=== PATIENT | male | born 1940 | race Caucasian/White ===

== ENCOUNTER 2019-06-15 17:33 | Observation (INO) | payer MEDICARE, OTHER ==
[~2019-06-15] VITALS: Ht 175.3 cm; Wt 100.4 kg
[~2019-06-15 17:33] MED LIST: ALLEGRA30 MG OR; ASA LO-DOSE81 MG OR; HYDROXYZ HCL25 MG OR; LIPITOR20 MG OR; MULTIVITAMI1 OR; VITAMIN C500 M1 OR
[2019-06-15] MEDS ORDERED: MINOCYCLINE50 MG PO (17:51)
[2019-06-15] MEDS ORDERED: LEVOTHYROXIN100 MCG PO (17:51)
[2019-06-15] MEDS ORDERED: DOXYCYCL HYC100 MG PO (17:52)
[2019-06-15] MEDS ORDERED: GABAPENTIN100 MG PO (17:53)
[2019-06-15] MEDS ORDERED: SINEMET CR PO (17:53)
[2019-06-15] MEDS ORDERED: LOSARTAN POTASS25 MG PO (17:53)
[2019-06-15 18:35] LABS: HEMATOCRIT 45.7 % (39.0-50.0); HEMOGLOBIN 15.4 g/dl (14.0-18.0); IMMATURE GRANULOCYTES 0.4 % (0.0-5.0); MEAN CELL VOLUME 92.7 fL CALC (80.0-100.0); MEAN CORPUSCULAR HGB 31.2 pG CALC (26.0-32.0); MEAN CORPUSCULAR HGB CONC 33.7 g/L CALC (32.0-36.0); NEUT# 5.36 thou/uL (1.82-7.42); RED BLOOD COUNT 4.93 mill/uL (4.70-6.10); RED CELL DISTRI WIDTH 13.1 % (11.5-15.5)
[2019-06-15 18:47] LABS: ALBUMIN 4.8 g/dL (3.2-5.0); ALKALINE PHOSPHATASE 69 u/l (38-126); ANION GAP 17 (6-22 (CALC)); BILIRUBIN, TOTAL 0.7 mg/dL (0.0-1.4); BUN 27 mg/dL (8-23); BUN/CREATININE RATIO 19 (12-20 (CALC)); CARBON DIOXIDE 26 mmol/l (22-30); CHLORIDE 105 mmol/l (95-108); CREATININE 1.4 mg/dL (0.7-1.3); GFR 49 ML/MIN (>=60 (CALC)); GFR FOR AFR.AMER. 59 ML/MIN (>=60 (CALC)); LIPASE 142 u/l (23-300); POTASSIUM 4.6 mmol/l (3.5-5.1); SGOT/AST 39 u/l (19-48); SODIUM 143 mmol/l (137-146); TOTAL PROTEIN 8.6 g/dL (6.3-8.2)
[2019-06-15 20:40] LABS: HEMATOCRIT 44.9 % (39.0-50.0); HEMOGLOBIN 14.7 g/dl (14.0-18.0); IMMATURE GRANULOCYTES 0.3 % (0.0-5.0); MEAN CELL VOLUME 94.5 fL CALC (80.0-100.0); MEAN CORPUSCULAR HGB 30.9 pG CALC (26.0-32.0); MEAN CORPUSCULAR HGB CONC 32.7 g/L CALC (32.0-36.0); NEUT# 5.08 thou/uL (1.82-7.42); RED BLOOD COUNT 4.75 mill/uL (4.70-6.10); RED CELL DISTRI WIDTH 13.2 % (11.5-15.5)
[2019-06-15 22:15] VITALS: BP 174/88
[2019-06-15 23:29] LABS: URINE BILIRUBIN - DIPSTICK NEGATIVE (NEGATIVE); URINE BLOOD DIPSTICK NEGATIVE (NEGATIVE); URINE COLOR YELLOW; URINE GLUCOSE - DIPSTICK NEGATIVE (NEGATIVE); URINE KETONE 15 mg/dL (NEGATIVE); URINE LEUK ESTERASE NEGATIVE (NEGATIVE); URINE NITRITE - DIPSTICK NEGATIVE (Negative); URINE PROTEIN - DIPSTICK NEGATIVE (NEG-TRACE); URINE UROBILINOGEN - DIPSTICK 0.2 E.U./dL (0.2)
[2019-06-16 00:26] VITALS: BP 116/70
[2019-06-16 04:30] VITALS: BP 100/61
[2019-06-16 07:22] VITALS: BP 118/73
[2019-06-16 11:39] VITALS: BP 130/66
== END 2019-06-16 13:30 | disposition home or self-care (01) ==
LOC: ED 17:33 → ED-I 20:09 → ED 20:16 → MS2 20:17
PROVIDERS: Family Medicine; ADMIT Internal Medicine; ATTEND Internal Medicine
DX: R07.89 Other chest pain (principal); I16.0 Hypertensive urgency; I12.9 Hypertensive chronic kidney disease with stage 1 through stage 4 chronic kidney disease, or unspecified chronic kidney disease; N18.9 Chronic kidney disease, unspecified; I25.10 Atherosclerotic heart disease of native coronary artery without angina pectoris; G20 Parkinson's disease; E03.9 Hypothyroidism, unspecified; Z86.73 Personal history of transient ischemic attack (TIA), and cerebral infarction without residual deficits; Z95.0 Presence of cardiac pacemaker; Z85.819 Personal history of malignant neoplasm of unspecified site of lip, oral cavity, and pharynx
CPT/HCPCS: Q9967

== ENCOUNTER 2021-09-15 15:19 | Observation (INO) | payer MEDICARE, OTHER ==
[~2021-09-15] VITALS: Ht 177.8 cm; Wt 88.0 kg
[~2021-09-15 15:19] MED LIST changes: +CALCIUM CITRATE1 TAB PO; +COZAAR50 MG PO; +DOXYCYCL HYC100 MG PO; +GABAPENTIN100 MG PO; +LEVOTHYROXIN100 MCG PO; +MINOCYCLINE50 MG PO; +SINEMET CR PO
--- NOTE | 2021-09-15 15:31 | NUR ---
PATIENT TO ROOM VIA WHEELCHAIR AND PHYSICIAN NOTIFIEND OF STATUS
--- NOTE | 2021-09-15 16:17 | NUR ---
PATIENT LABS COLLECTED AND IN NO ACUTE DISTRESS.
[2021-09-15 16:43] LABS: HEMATOCRIT 34.3 % (39.0-50.0); HEMOGLOBIN 10.6 g/dl (14.0-18.0); MEAN CELL VOLUME 95.5 fL CALC (80.0-100.0); MEAN CORPUSCULAR HGB 29.5 pG CALC (26.0-32.0); MEAN CORPUSCULAR HGB CONC 30.9 g/dL CAL (32.0-36.0); NEUT# 4.7 thou/uL (1.82-7.42); RED BLOOD COUNT 3.59 mill/uL (4.70-6.10); RED CELL DISTRI WIDTH 16.6 % (11.5-15.5)
[2021-09-15 17:04] LABS: ALBUMIN 3.6 g/dL (3.2-5.0); ALKALINE PHOSPHATASE 67 u/l (38-126); AMYLASE 48 u/l (30-110); BILIRUBIN, TOTAL 0.7 mg/dL (0.0-1.4); BUN 24 mg/dL (8-23); BUN/CREATININE RATIO 24 (12-20 (CALC)); CHLORIDE 105 mmol/l (95-108); GFR > 60 ML/MIN (>=60 (CALC)); GFR FOR AFR.AMER. > 60 ML/MIN (>=60 (CALC)); LIPASE 56 u/l (23-300); SGOT/AST 27 u/l (19-48); SODIUM 141 mmol/l (137-146); TOTAL PROTEIN 6.7 g/dL (6.3-8.2)
[2021-09-15 17:05] LABS: ANION GAP 14 (6-22 (CALC)); CARBON DIOXIDE 26 mmol/l (22-30)
--- NOTE | 2021-09-15 17:30 | NUR ---
Reassessment of patient completed. No distress noted.
--- NOTE | 2021-09-15 18:11 | NUR ---
Reassessment of patient completed. No distress noted.
--- NOTE | 2021-09-15 19:23 | NUR ---
report called to marcus cobian on med surg
[2021-09-15 19:36] VITALS: BP 146/105
--- NOTE | 2021-09-15 19:38 | NUR ---
PT ARRIVED TO FLOOR VIA WHEELCHAIR ACCOMPANIED BY ER NURSE, PT AMBULATED WITH STEADY GAIT, X1 TO BED, ORIENTED PT TO ROOM AND CALL LIGHT, PT ALERT AND ORIENTED X3, DISCUSSED POC, VERBALIZED UNDERSTANDING. RESP EVEN AND UNLABORED, RA. SKIN INTACT, NOTED +4 PITTING EDEMA. ADMISSION ASSESSMENT COMPLETED, CALL LIGHT IN REACH,CONTINUE TO MONITOR.
--- NOTE | 2021-09-15 19:41 | NUR ---
PT STOOD AND TRANSFERRED TO W/C WITH MOD ASSIST TRANSPORTED TO MED SURG VIA WC WITH ALL BELONGINGS WITH PT, NO TELE ORDERED RECIEVEING NURSE IN ROOM ON ARRIVAL.
--- NOTE | 2021-09-15 21:20 | NUR ---
BSC SET UP FOR SSE, DISCUSSED PT AGREED. 500CC OF SSE, PT ABLE TO HOLD AND TOLERATED WELL BUT NO STOOL. PT REQUESTING A SECOND ATTEMPT. PT TOLERATED WELL, NO STOOL NOTED. ATTEMPTED TO DIGITALLY DISIMPACT BUT UNSUCCESSFUL. WILL RETURN AT LATER TIME. CALL LIGHT IN REACH,CONTINUE TO MONITOR.
--- NOTE | 2021-09-15 23:53 | NUR ---
MD NOTIFIED OF ELEVATED BP AND OF 2 SSE AND ATTEMPTED TO DIGITALLY DISIMPACT UNSUCCESSFUL. NEW ORDERS RECEIVED, PENDING PHARMACY TO PROFILE.
--- NOTE | 2021-09-16 00:20 | NUR ---
ENTERED ROOM TO DISCUSS NULYTELY ORDER AN HYDRALZINE FOR BP, PT STATES," I DO NOT WANT TO TAKE ANYTHING I'M FED UP WITH THE WHOLE THING, IF I STOP TAKING PILLS FOR MY BLOOD PRESSURE IT WILL GO DOWN ON ITS OWN, AND I HAVE DEALT WITH THIS BOWEL STUFF MANY TIMES AND I KNOW HOW TO FIX IT WHEN I GET HOME." CALL LIGHT IN REACH, OFFERED TO TURN OFF LIGHT PT STATES "NO LEAVE IT ON SO I CAN WATCH THE CLOCK". CONTINUE TO MONITOR.
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
--- NOTE | 2021-09-16 01:01 | NUR ---
PT MEDICATED FOR BP 224/101, HR87.
[2021-09-16 01:23] VITALS: BP 146/65
[2021-09-16 03:33] VITALS: BP 159/82
--- NOTE | 2021-09-16 03:59 | NUR ---
ASSISTED PT WITH URINAL, NO SIGNS OF DISTRESS NOTED, RESP EVEN AND UNLABORED. CALL LIGHT IN REACH,CONTINUE TO MONITOR.
--- NOTE | 2021-09-16 06:00 | NUR ---
PT STATES HE HAS THE URGE TO "PEE" BUT UNABLE TO, PT WAS UP TO BSC,NO SUCCESS.PT IN BED, BLADDER SCANNED AND 495ML DISCUSSED POSSIBILITY OF CATHETER OR STRAIGHT CATH, PT REFUSED. ATTEMPTED TO ENCOURAGE PT TO DRINK NULYTELY PT DOES NOT SHOW INTEREST, NODDING HIS HEAD NO. WILL NOTIFY MD, CALL LIGHT IN REACH,CONTINUE TO MONITOR.
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
--- NOTE | 2021-09-16 07:34 | NUR ---
PATIENT IS RESTING IN BED. PATIENT REFUSED FOR PRIZE JACKER TO ASSESS HIM AND OBTAIN VS, AND MEDICATIONS. ENCOURAGE PATIENT TO EAT HIS BREAKFAST AND PATIENT REFUSED. ENCOURAGE PATIENT TO USE THE URINAL. PATIENT STATED HE WANTS TO BE LEFT ALONE. CALL LIGHT IN REACH.
--- NOTE | 2021-09-16 08:35 | NUR ---
MANNEQUIN MAKER IN ROOM TO OBTAIN BREAKFAST TRAY AND PATIENT STATED LEAVE ME ALONE. CALL LIGHT IN REACH.
--- NOTE | 2021-09-16 09:01 | NUR ---
NOTIFIED TANO WILKERSON THAT PATIENT IS REFUSING CARE FOR MEDICATIONS, ASSESMENT, AND REFUSED JACKSON.
--- NOTE | 2021-09-16 09:22 | NUR ---
AND TANO WILKERSON AT BEDSIDE TO DISCUSS POC WITH PATIENT.
--- NOTE | 2021-09-16 09:54 | NUR ---
PATIENT IS SITTING IN THE SIDE OF THE BED. PATIENT STATED HE IS TIRED OF BEING IN THE BED. HIS NECK HURTS. ENCOURAGE PATIENT TO SIT IN THE RECLINER AND PATIENT REFUSED. PATIENT STATED WHATS THE POC. TOLD PATIENT WAITING FOR MD TO ORDER MEDICATIONS. APPLIED A WARM PACK IN PATIENT NECK. PATIENT DENIES ANY OTHER NEEDS AT THIS TIME. CALL LIGHT IN REACH.
[2021-09-16 10:37] VITALS: BP 145/79
--- NOTE | 2021-09-16 10:37 | NUR ---
PATIENT IS SITTING IN THE SIDE OF THE BED. VS OBTAIN. PATIENT STATED I DON'T NEED THE MAGNESIUM CITRATE. EXPLAIN TO PATIENT THAT MD ORDER . PATIENT STATED FINE GAVE IT WITH ICE. CALL LIGHT IN REACH.
--- NOTE | 2021-09-16 10:52 | NUR ---
PATIENT CALLED AND STATED HE ONLY TOOK A FEWS SIPS MAGNESIUM CITRATE. PATIENT STATED THAT HE CAN'T DRINK THE MAGNESIUM CITRATE BECAUSE WHEN HE DRINKS THE FLUID THAT IT CAN GO TO HIS LUNGS. ASKED PATIENT THAT IF ALL PO FLUIDS GO TO HIS LUNGS PATIENT STATE NO JUST THE MAGNESIUM CITRATE. TOLD PATIENT TO ONLY TAKE SMALL SIPS BUT PATIENT REFUSED. CALL LIGHT IN REACH.
--- NOTE | 2021-09-16 11:08 | NUR ---
EXPLAIN TO PATIENT ARPN ORDER THE DULCOLAX SUPPOSITORY. PATIENT STATED I DON'T KNOW. LET ME THINK ABOUT IT. THEN PATIENT STATED THATS FINE. PATIENT LAYING IN HIS LEFT SIDE IN BED. APPLIED THE SUPPOSITORY AND PATIENT TOLERATED. CALL LIGHT IN REACH.
--- NOTE | 2021-09-16 13:30 | NUR ---
X2 PERSON ASSISTED PATIENT TO THE BSC. CALL LIGHT IN REACH.
--- NOTE | 2021-09-16 15:09 | NUR ---
PATIENT IN ROOM. PATIENT STATED THAT FOR HIS FLUIDS HE DOES THICKEN. MIXED THE MAGNESIUM CITRATE WITH THICKER. PATIENT TAKING SIPS. CALL LIGHT IN REACH.
--- NOTE | 2021-09-16 15:41 | NUR ---
Discharge instructions given. Patient verbalizes understanding of same. Discharged in stable condition via Wheelchair to Home with staff. All belongings sent with pt.
[2021-09-16 15:55] VITALS: BP 192/86
--- NOTE | 2021-09-16 16:04 | NUR ---
MEDICATED PATIENT WITH APRESOLINE FOR BP 192/86 AND P-90. REPORT GIVEN TO JAZ MAURER
--- NOTE | 2021-09-16 16:17 | NUR ---
PATIENT RESTING AT THIS TIME. PATIENT DENIES ANY HEADACHE OR PAIN. PATIENT SIDERAILS ARE UP CALL LIGHT WIIN REACH WILL CONTINUE TO MONITOR. REPORT HANDED OFF TO ME BY JAMES SEBASTIAN
[2021-09-16 16:34] VITALS: BP 145/63
--- NOTE | 2021-09-16 17:31 | NUR ---
PATIENT BP RECHECK AND IS READING 145/63 AND PULSE IS 89. PATIENT DENIES ANY PAIN AT THIS TIME. SIDERAILS ARE UP CALL LIGHT WIIN REACH.
[2021-09-16 19:40] VITALS: BP 160/88
--- NOTE | 2021-09-16 20:00 | NUR ---
PATIENT RESTING IN BED AT THIS TIMEWITH HOB ELEVATED. PATIENT WITH SEVERE COUGH AND LARGE AMT OF SECREATIONS. PATIENT STATES THAT SOMETIMES WHEN HE DRINKS PO FLUIDS IT GOES INTO HIS LUNGS. PATIENT WITH HX OF THROAT CANCER AND RADIATION THERAPY. LIQUIDS THICKENED AND PATIENT IS ABLE TO TAKE FLUIDS BETTER WITHOUT ANY COUGHING. REMAINING CITRATE OF MAG THCICKENED AND PATIENT WAS ABLE TO TAKE IT. PATIENT REFUSED NEURONTIN-STATES THAT HE DOESN'T TAKE IT ANY LONGER BUT DID TAKE HIS LIPITOR WITHOUT ANY DIFFICULTY WITH THICKENED LIQUIDS. BLADDER SCAN WAS DONE AND SHOWED ONLY 87CC AT THIS TIME. PATIENT HAD LARGE URINE INCONT AT SHIFT CHANGE. ABD IS DISTENDED WITH ACTIVE BS. PATIENT SCOTUM AND PERINEAL AREA IS RED AND PERINEAL CARE WITH SOAP AND WATER WAS DONE AND NYSTATIN POWDER WAS APPLIED. BLE ARE SWOLLEN-3+ AND BLE WERE ELEVATED ON PILLOWS. SAFETY PRECAUTIONS REINFORCED. CALL LIGHT IN REACH. WILL CONT TO MONITOR
--- NOTE | 2021-09-16 21:42 | NUR ---
PATIENT RESTING IN BED-HOB ELEVATED. PATIENT CONT TO DRINK THICKENED GOLYTELY PREP LEFT OVER FROM LAST NIGHT-2 MORE GLASSES THCIKENED. NO COUGHING AT THIS TIME. SAFETY PRECAUTIONS REINFORCED. CALL LIGHT IN REACH. WILL CONT TO MONITOR.
[2021-09-17] VITALS (7 sets, daily range): BP systolic 117–196; BP diastolic 60–90
--- NOTE | 2021-09-17 00:17 | NUR ---
PATIENT RESTING IN BED WITH HOB ELEVATED AT THIS TIME. EYES ARE CLOSED AND RESPS ARE EVEN AND UNLABORED. PATIENT WAS ABLE TO DRINK TOTAL OF 4 GLASSES OF GOLYTELY PREP THICKENED BEFORE GOING TO SLEEP TONIGHT-NO BM YET TONIGHT. CALL LIGHT IN REACH. WILL CONT TO MONITOR.
--- NOTE | 2021-09-17 03:04 | NUR ---
PATIENT RESTING IN BED WITH HOB ELEVATED AND EYES CLOSED. RESPS ARE EVEN AND UNLABORED. CALL LIGHT IN REACH. WILL CONT TO MONITOR.
--- NOTE | 2021-09-17 04:34 | NUR ---
PATIENT RESTING IN BED-BP ELEVATED AT 196/90, HR-87. PATIENT MEDICATED WITH APRESOLINE 10MG IVP FOR HTN. LAB WORK WAS DRAWN TODAY. SAFETY PRECAUTIONS REINFORCED. CALL LIGHT IN REACH. WILL CONT TO MONITOR.
[2021-09-17 05:07] LABS: HEMATOCRIT 43.1 % (39.0-50.0); HEMOGLOBIN 12.6 g/dl (14.0-18.0); IMMATURE GRANULOCYTES 0.2 % (0.0-5.0); MEAN CELL VOLUME 100.9 fL CALC (80.0-100.0); MEAN CORPUSCULAR HGB 29.5 pG CALC (26.0-32.0); MEAN CORPUSCULAR HGB CONC 29.2 g/dL CAL (32.0-36.0); NEUT# 2.9 thou/uL (1.82-7.42); RED BLOOD COUNT 4.27 mill/uL (4.70-6.10); RED CELL DISTRI WIDTH 16.8 % (11.5-15.5)
[2021-09-17 05:10] LABS: ANION GAP 15 (6-22 (CALC)); BUN 18 mg/dL (8-23); BUN/CREATININE RATIO 20 (12-20 (CALC)); CARBON DIOXIDE 22 mmol/l (22-30); CHLORIDE 107 mmol/l (95-108); CREATININE 0.9 mg/dL (0.7-1.3); GFR > 60 ML/MIN (>=60 (CALC)); GFR FOR AFR.AMER. > 60 ML/MIN (>=60 (CALC)); POTASSIUM 3.8 mmol/l (3.5-5.1); SODIUM 141 mmol/l (137-146)
--- NOTE | 2021-09-17 05:34 | NUR ---
PATIENT RESTING IN BED AT THIS TIME-BP RECHECK-142/74. BLADDER SCAN 319CC AT THIS TIME. CALL LIGHT IN REACH. WILL CONT TO MONITOR.
--- NOTE | 2021-09-17 07:00 | NUR ---
PATIENT LAYING IN BED AT THIS TIME ALERT AND ORIENT. PATIENT DENIES ANY PAIN AT THIS TIME BLADDER SCANED AND SHOWS 217 URINAL PROPPED ON PATIENT AT THIS TIME. PERINEAL FOLDS AND GROIN ARE RED AT THIS TIME AND BEING TREATED WITH NYSTATIN. PATIENT PRESENTS WITH 4+ EDEMA IN BILATERAL LOWER LEGS AND ARE ELEVATED ON PILLOW AT THIS TIME. SIDERAILS ARE UP CALL LIGHT IS WIHTIN REACH.
--- NOTE | 2021-09-17 11:39 | NUR ---
PATIENT RESTING IN BED AT THIS TIME. PATIENT DEINES ANY NEEDS CURRENTLY SIDERAILS ARE UP CALL LIGHT WITHIN REACH. WILL CONTINUE TO MONITOR. BOWEL SOUNDS ARE HYPERACTIVE AT THIS TIME IN ALL FOUR QUADRANTS. PATIENT STATES "I AM PASSING GAS". WILL CONTINUE TO MONITOR. LUNCH BEING SERVED A THIS TIME.
[2021-09-17 12:19] LABS: URINE BLOOD DIPSTICK NEGATIVE (NEGATIVE); URINE COLOR YELLOW; URINE GLUCOSE - DIPSTICK NEGATIVE (NEGATIVE); URINE KETONE >=80 mg/dL (NEGATIVE); URINE LEUK ESTERASE NEGATIVE (NEGATIVE); URINE PROTEIN - DIPSTICK 30 mg/dL (NEG-TRACE); URINE SPECIFIC GRAVITY >=1.030; URINE UROBILINOGEN - DIPSTICK 0.2 E.U./dL (0.2)
[2021-09-17 12:23] LABS: URINE BILIRUBIN - DIPSTICK NEGATIVE (NEGATIVE); URINE NITRITE - DIPSTICK NEGATIVE (Negative)
[2021-09-17 12:24] LABS: URINE RBC 0-2 RBC/hpf (0-5); URINE WBC 0-2 WBC/hpf (0-5)
--- NOTE | 2021-09-17 14:13 | NUR ---
PATIENT UP IN CHAIR AT THIS TIME. PATIENT'S IN TO SEE PATIENT. PATIENT GIVING MILK OF MAG AND WARM PRUNE JUICE AT THIS TIME. PATIENT DENIES ANY PAIN CALL LIGHT WITH IN REACH.
--- NOTE | 2021-09-17 16:13 | NUR ---
PATIENT SITTING UP IN CHAIR AT THIS TIME. DENIES ANY PAIN AT THIS TIME. CALL LIGHT IS WITHIN REACH. WILL CONTINUE TO MONITOR
--- NOTE | 2021-09-17 19:21 | NUR ---
PATIENT RESTING IN BED AT THIS TIME-SITTING IN HIGH FOWLERS POSITION. AWAKE ALERT AND ORIENTEDX3 FINISHING HIS DINNER. APPETITE IS GOOD. TAKING THICKENED LIQUIDS WITHOUT ANY DIFFICULTY. NO COUGHING NOTED. SALINE LOCK TO RAC INTACT. CONT TO HAVE BLE EDEMA-FEET ELEVATED ON PILLOWS. ABD REMAINS DISTENDED WITH ACTIVE BS. STILL NO BM EVEN AFTER TAKING MOM AND PRUNE JUICE. SAFETY PRECAUTIONS REINFORCED. CALL LIGHT IN REACH. WILL CONT TO MONITOR.
--- NOTE | 2021-09-17 21:29 | NUR ---
PATIENT MAX ASSIST OOB TO THE BSC-VERY RIGID AND DIFFICULT TO MOVE. PATIENT DID HAVE MODERATE AMT OF SOFT FORMED STOOL. STOOL SPEC OBTAINED AND SENT TO LAB, PATIENT MAX ASSIST BACK INTO BED. PATIENT TAKING PO MEDS WITH THICKENED PRUNE JUICE. NO COUGHING NOTED. SAFETY PRECAUTIONS REINFORCED. CALL LIGHT IN REACH. WILL CONT TO MONITOR.
--- NOTE | 2021-09-17 21:35 | NUR ---
PATIENT RESTING IN BED AT THIS ITME-MEDICATED FOR HTN WITH APRESOLINE 10MG IVP ORDERED VIA RIGHT AC SITE. SAFETY PRECAUTIONS REINFORCED. CALLL LIGHT IN REACH. WILL CONT TO MONITOR.
--- NOTE | 2021-09-17 23:30 | NUR ---
PATIENT CALLED FOR ASSIST OOB TO BSC AGAIN. MAX ASSIST OF 2 TO REANSFER TO THE BSC. MODERATE AMT OF FORMED AND LOOSE BROWN STOOL. MAX ASSIST BACK INTO BED. SAFETY PRECAUTIONS REINFORCED. CALL LIGHT IN REACH. WILL CONT TO MONITOR.
[2021-09-18 00:02] VITALS: BP 177/65
[2021-09-18 04:08] VITALS: BP 143/61
--- NOTE | 2021-09-18 04:24 | NUR ---
PATIENT CALLED AND ASSISTED TO BSC-NO URINE OR STOOL AT THIS TIME. BLADDER SCAN WAS DONE-207 AT THIS TIME. ABD REMAINS DISTENDED WITH ACTIVE BS. 2 MODERATE SIZED BM'S TONIGHT. RESTING IN BED AT THIS TIME. CALL LIGHT IN REACH. WILL CONT TO MONITOR.
--- NOTE | 2021-09-18 07:15 | NUR ---
PATIENT RESTING IN BED AT THIS TIME. SENIOR DIRECTOR FINANCE DONE SEE INTERVENTIONS. PATIENT BLADDER SCAN AND SHOWS 215CC. PATIENT DENIES ANY DISCOMFORT AT THIS TIME AND OR PAIN. ABDOMINAL AREA DISTENDED AND SOFT PATIENT HAS TWO BOWEL MOVEMNETS REPORTED LAST FROM PATIENT AND PREVIOUS SHIF. SIDERAILS ARE UP AND CALL LIGHT IS WITHIN REACH.
[2021-09-18 07:21] VITALS: BP 170/76
[2021-09-18 09:40] VITALS: BP 173/85
--- NOTE | 2021-09-18 09:46 | NUR ---
PATIENT GIVEN 10MG OF HYDRALAZINE AT THIS TIME FOR BLOOD PRESSURE OF 173/85 AT THIS TIME AND PULSE RATE OF 83. PATIENT DENEIS ANY PAIN AND WILL CONTINUE TO MONITOR.
[2021-09-18 09:58] LABS: HEMATOCRIT 40.7 % (39.0-50.0); HEMOGLOBIN 12.5 g/dl (14.0-18.0); IMMATURE GRANULOCYTES 0.1 % (0.0-5.0); MEAN CELL VOLUME 95.5 fL CALC (80.0-100.0); MEAN CORPUSCULAR HGB 29.3 pG CALC (26.0-32.0); MEAN CORPUSCULAR HGB CONC 30.7 g/dL CAL (32.0-36.0); NEUT# 6.3 thou/uL (1.82-7.42); RED BLOOD COUNT 4.26 mill/uL (4.70-6.10); RED CELL DISTRI WIDTH 16.9 % (11.5-15.5)
[2021-09-18 10:39] LABS: ALBUMIN 3.8 g/dL (3.2-5.0); ALKALINE PHOSPHATASE 88 u/l (38-126); BILIRUBIN, TOTAL 0.5 mg/dL (0.0-1.4); BUN 20 mg/dL (8-23); BUN/CREATININE RATIO 23 (12-20 (CALC)); CHLORIDE 106 mmol/l (95-108); CREATININE 0.9 mg/dL (0.7-1.3); GFR > 60 ML/MIN (>=60 (CALC)); GFR FOR AFR.AMER. > 60 ML/MIN (>=60 (CALC)); POTASSIUM 3.5 mmol/l (3.5-5.1); SGOT/AST 24 u/l (19-48); SODIUM 143 mmol/l (137-146); TOTAL PROTEIN 7.3 g/dL (6.3-8.2)
[2021-09-18 10:51] LABS: ANION GAP 12 (6-22 (CALC)); CARBON DIOXIDE 29 mmol/l (22-30)
[2021-09-18 10:56] VITALS: BP 101/57
--- NOTE | 2021-09-18 11:16 | NUR ---
PATIENT SITTING UP IN CHAIR AT THIS TIME PATIENT BEE ANY PAIN CURRENT RECHECK OF BLOOD PRESSURE IS 101/57. PATIENT DEINES ANY NEEDS CALL LIGHT JENARO REACH DR. WORLEY MAKING ROUNDS AT THIS TIME.
--- NOTE | 2021-09-18 12:00 | NUR ---
S- pt initially did not want to get up but agreed to participate in treatment. 0- Pt required mod assist in rolling side to sit and supine to sit uping bed rails. Scooting with mod assist. Sit to and from standing with min/mod assist x 4 reps. Transferring to bedside chair min/mod assist. Pt only able to maintain static stand x 1 min then wanted to sit due to LE weakness. Gait with RW 1 x 12' with CGA/min assist. Posture was flexed with small schuffled steps. LE ex performed x 20 reps in sitting including LAQ/marching and ankle DF/PF. 02 sats 96, 93, 98%, HR 95,87,93, BP 137/62 in supine 109/63 sitting and 101/57 at end of treatment. Time spent with pt 40 min A- Pt [facility]. Pt at risk for falls. P- Will follow per POC,
[2021-09-18] MEDS ORDERED: SENNA REGULAR8.6 MG PO (12:37)
--- NOTE | 2021-09-18 13:37 | NUR ---
PATIENT D/C AT THIS TIME. PATIENT WITH PATIENT AND VERBALIZES UNDERSTANDING OF D/C INSTRUCTIONS. PATIENT GIVEN INSTRUCTIONS ON [facility] AND WHAT TO EXPECT. IV REMOVED AND TIP INTACT.
--- NOTE | 2021-09-18 13:47 | NUR ---
Discharge instructions given. Patient verbalizes understanding of same. Discharged in stable condition via Wheelchair to Home with spouse. All belongings sent with pt. D/C INSTRUCTIONS GONE OVER WITH PATIENT AND TO INCLUDE HOMECARE INSTRUCTIONS. PATIENT AND INFORMED [facility] AND SET UP TIME TO VISIT THEM. PATIENT VERBALIZED UNDERSTANDING OF THIS.
== END 2021-09-18 13:45 ==
LOC: ED 15:19 → ED-I 18:50 → ED 18:58 → MS2 18:59
PROVIDERS: Emergency Medicine; Nurse Practitioner; ADMIT Internal Medicine; ATTEND Internal Medicine
DX: K56.41 Fecal impaction (principal); R33.9 Retention of urine, unspecified; R53.1 Weakness; I12.9 Hypertensive chronic kidney disease with stage 1 through stage 4 chronic kidney disease, or unspecified chronic kidney disease; N18.9 Chronic kidney disease, unspecified; G20 Parkinson's disease; E03.9 Hypothyroidism, unspecified; Z95.0 Presence of cardiac pacemaker; Z85.819 Personal history of malignant neoplasm of unspecified site of lip, oral cavity, and pharynx; Z92.3 Personal history of irradiation; Z20.822 Contact with and (suspected) exposure to COVID-19
CPT/HCPCS: Q9967

== ENCOUNTER 2022-05-29 16:17 | Emergency (ER) | payer MEDICARE, OTHER ==
[~2022-05-29] VITALS: Ht 177.8 cm; Wt 73.0 kg
[2022-05-29] VITALS (7 sets, daily range): BP systolic 127–152; BP diastolic 60–69
[~2022-05-29 16:17] MED LIST changes: +SENNA REGULAR8.6 MG PO
[2022-05-29 17:16] LABS: GFR FOR AFR.AMER. > 60 ML/MIN (>=60 (CALC)); GFR OTHER RACES 58 ML/MIN (>=60 (CALC))
[2022-05-29 17:19] LABS: HEMOGLOBIN 11.5 g/dl (14.0-18.0); IMMATURE GRANULOCYTES 0.1 % (0.0-5.0); MEAN CORPUSCULAR HGB 29.3 pG CALC (26.0-32.0); MEAN CORPUSCULAR HGB CONC 33.1 g/dL CAL (32.0-36.0); NEUT# 5.45 thou/uL (1.82-7.42); RED BLOOD COUNT 3.92 mill/uL (4.70-6.10); RED CELL DISTRI WIDTH 15.4 % (11.5-15.5)
[2022-05-29 17:21] LABS: HEMATOCRIT 34.7 % (39.0-50.0); MEAN CELL VOLUME 88.5 fL CALC (80.0-100.0)
[2022-05-29 17:47] LABS: ALBUMIN 4.1 g/dL (3.2-5.0); ALKALINE PHOSPHATASE 85 u/l (38-126); ANION GAP 13 (6-22 (CALC)); BILIRUBIN, TOTAL 0.5 mg/dL (0.0-1.4); BUN 28 mg/dL (8-23); BUN/CREATININE RATIO 22 (12-20 (CALC)); CARBON DIOXIDE 26 mmol/l (22-30); CHLORIDE 108 mmol/l (95-108); CREATININE 1.3 mg/dL (0.7-1.3); GFR FOR AFR.AMER. > 60 ML/MIN (>=60 (CALC)); GFR OTHER RACES 53 ML/MIN (>=60 (CALC)); LIPASE 46 u/l (23-300); POTASSIUM 4.1 mmol/l (3.5-5.1); SGOT/AST 21 u/l (19-48); SODIUM 143 mmol/l (137-146); TOTAL PROTEIN 7.9 g/dL (6.3-8.2)
[2022-05-29] MEDS ORDERED: PROTONIX40 M2 PO (18:32)
[2022-05-30] MEDS ORDERED: PROTONIX40 M2 PO (13:26)
== END 2022-05-29 18:53 ==
LOC: ED 16:17
PROVIDERS: Family Medicine
DX: R19.5 Other fecal abnormalities (principal); I10 Essential (primary) hypertension; K21.9 Gastro-esophageal reflux disease without esophagitis; G20 Parkinson's disease; Z92.3 Personal history of irradiation; Z93.1 Gastrostomy status; Z95.0 Presence of cardiac pacemaker; Z85.819 Personal history of malignant neoplasm of unspecified site of lip, oral cavity, and pharynx

== ENCOUNTER 2022-10-03 09:27 | Emergency (ER) | payer MEDICARE, OTHER ==
[2022-10-03] VITALS (14 sets, daily range): BP systolic 125–142; BP diastolic 56–64
[~2022-10-03] VITALS: Ht 177.8 cm; Wt 61.1 kg
[~2022-10-03 09:27] MED LIST changes: +PROTONIX40 M2 PO; -SINEMET CR PO; +SINEMET PO
[2022-10-03] MEDS ORDERED: NORVASC10 M1 PO (10:09)
[2022-10-03] MEDS ORDERED: FOLIC ACID1 MG PO (10:10)
[2022-10-03] MEDS ORDERED: FEROSUL325 MG PO (10:10)
[2022-10-03] MEDS ORDERED: MIRTAZAPINE15 MG PO (10:11)
[2022-10-03] MEDS ORDERED: POTASSIUM CHLO10 MEQ PO (10:16)
[2022-10-03] MEDS ORDERED: SUCRALFATE1 GM PO (10:17)
[2022-10-03 10:22] LABS: BASO% 0.1 % (0-3); EOS% 0.1 % (0-8); HEMATOCRIT 36.1 % (39.0-50.0); HEMOGLOBIN 11.3 g/dl (14.0-18.0); IMMATURE GRANULOCYTES 0.2 % (0.0-5.0); LYMPH% 4.3 % (15-41); MEAN CELL VOLUME 92.3 fL CALC (80.0-100.0); MEAN CORPUSCULAR HGB 28.9 pG CALC (26.0-32.0); MEAN CORPUSCULAR HGB CONC 31.3 g/dL CAL (32.0-36.0); MONO% 3.8 % (2-13); NEUT# 11.73 thou/uL (1.82-7.42); NEUT% 91.5 % (42-76); RED BLOOD COUNT 3.91 mill/uL (4.70-6.10); RED CELL DISTRI WIDTH 13.7 % (11.5-15.5)
[2022-10-03] MEDS ORDERED: THICK-IT PO (10:26)
[2022-10-03 10:42] LABS: BILIRUBIN, TOTAL 0.5 mg/dL (0.0-1.4); CREATININE 1.6 mg/dL (0.7-1.3); POTASSIUM 4.1 mmol/l (3.5-5.1)
[2022-10-03 10:54] LABS: ALBUMIN 3.2 g/dL (3.2-5.0)
[2022-10-03] MEDS ORDERED: LEVAQUIN750 M1 PO (12:54)
[2022-10-04] MEDS ORDERED: CEROVIT2 PO (18:21)
== END 2022-10-03 13:45 | disposition left against medical advice (07) ==
LOC: ED 09:27 → ED-I 12:10 → ED 13:45
PROVIDERS: Family Medicine
DX: J18.9 Pneumonia, unspecified organism (principal); I10 Essential (primary) hypertension; G20 Parkinson's disease; F17.200 Nicotine dependence, unspecified, uncomplicated; T50.916A Underdosing of multiple unspecified drugs, medicaments and biological substances, initial encounter; Z91.128 Patient's intentional underdosing of medication regimen for other reason; Z95.0 Presence of cardiac pacemaker; Z53.29 Procedure and treatment not carried out because of patient's decision for other reasons; Z85.819 Personal history of malignant neoplasm of unspecified site of lip, oral cavity, and pharynx; Z92.3 Personal history of irradiation; Z20.822 Contact with and (suspected) exposure to COVID-19

== ENCOUNTER 2022-10-04 13:32 | Inpatient (IN) | payer MEDICARE, OTHER ==
[2022-10-04] VITALS (13 sets, daily range): BP systolic 110–135; BP diastolic 48–95
[~2022-10-04] VITALS: Ht 177.8 cm; Wt 61.0 kg
[~2022-10-04 13:32] MED LIST changes: +FEROSUL325 MG PO; +FOLIC ACID1 MG PO; +LEVAQUIN750 M1 PO; +MIRTAZAPINE15 MG PO; +NORVASC10 M1 PO; +POTASSIUM CHLO10 MEQ PO; +SUCRALFATE1 GM PO; +THICK-IT PO
[2022-10-04 14:05] LABS: EOS% 0.2 % (0-8); HEMOGLOBIN 10.1 g/dl (14.0-18.0); IMMATURE GRANULOCYTES 0.3 % (0.0-5.0); LYMPH% 6.9 % (15-41); MEAN CELL VOLUME 91.4 fL CALC (80.0-100.0); MEAN CORPUSCULAR HGB 28.9 pG CALC (26.0-32.0); MEAN CORPUSCULAR HGB CONC 31.6 g/dL CAL (32.0-36.0); MONO% 4.5 % (2-13); NEUT# 9.65 thou/uL (1.82-7.42); NEUT% 88.1 % (42-76); RED BLOOD COUNT 3.5 mill/uL (4.70-6.10); RED CELL DISTRI WIDTH 13.6 % (11.5-15.5)
[2022-10-04 14:19] LABS: ALBUMIN 3.2 g/dL (3.2-5.0); BILIRUBIN, TOTAL 0.3 mg/dL (0.0-1.4); CREATININE 1.6 mg/dL (0.7-1.3); POTASSIUM 3.4 mmol/l (3.5-5.1); TOTAL PROTEIN 8.1 g/dL (6.3-8.2)
[2022-10-04] MEDS ORDERED: CEROVIT2 PO (18:21)
[2022-10-05 04:52] VITALS: BP 116/58
[2022-10-05 06:04] LABS: BASO% 0.1 % (0-3); EOS% 0.4 % (0-8); HEMATOCRIT 28.3 % (39.0-50.0); IMMATURE GRANULOCYTES 0.2 % (0.0-5.0); MEAN CORPUSCULAR HGB 29.9 pG CALC (26.0-32.0); MEAN CORPUSCULAR HGB CONC 31.8 g/dL CAL (32.0-36.0); MONO% 5.5 % (2-13); NEUT# 9.61 thou/uL (1.82-7.42); NEUT% 86.8 % (42-76); RED BLOOD COUNT 3.01 mill/uL (4.70-6.10); RED CELL DISTRI WIDTH 13.7 % (11.5-15.5)
[2022-10-05 06:19] LABS: ALKALINE PHOSPHATASE 100 u/l (38-126); BILIRUBIN, TOTAL 0.2 mg/dL (0.0-1.4); BUN 31 mg/dL (8-23); BUN/CREATININE RATIO 26 (12-20 (CALC)); CHLORIDE 116 mmol/l (95-108); CREATININE 1.2 mg/dL (0.7-1.3); GFR FOR AFR.AMER. > 60 ML/MIN (>=60 (CALC)); GFR OTHER RACES 58 ML/MIN (>=60 (CALC)); POTASSIUM 3.7 mmol/l (3.5-5.1); SGOT/AST 38 u/l (19-48); SODIUM 146 mmol/l (137-146); TOTAL PROTEIN 6.6 g/dL (6.3-8.2)
[2022-10-05 06:31] LABS: ALBUMIN 2.5 g/dL (3.2-5.0); ANION GAP 11 (6-22 (CALC)); CARBON DIOXIDE 23 mmol/l (22-30)
[2022-10-05 06:41] VITALS: BP 124/58
[2022-10-05 10:15] VITALS: BP 115/55
[2022-10-05 15:09] VITALS: BP 131/55
[2022-10-05 19:07] VITALS: BP 129/55
[2022-10-06 04:00] VITALS: BP 141/58
[2022-10-06 04:56] VITALS: BP 141/58
[2022-10-06 06:19] LABS: EOS% 0.5 % (0-8); HEMATOCRIT 28.2 % (39.0-50.0); IMMATURE GRANULOCYTES 0.2 % (0.0-5.0); LYMPH% 7.3 % (15-41); MEAN CELL VOLUME 92.5 fL CALC (80.0-100.0); MEAN CORPUSCULAR HGB 29.5 pG CALC (26.0-32.0); MEAN CORPUSCULAR HGB CONC 31.9 g/dL CAL (32.0-36.0); MONO% 4.1 % (2-13); NEUT# 7.42 thou/uL (1.82-7.42); NEUT% 87.9 % (42-76); RED BLOOD COUNT 3.05 mill/uL (4.70-6.10); RED CELL DISTRI WIDTH 13.7 % (11.5-15.5)
[2022-10-06 07:05] LABS: ALBUMIN 2.5 g/dL (3.2-5.0); ALKALINE PHOSPHATASE 102 u/l (38-126); ANION GAP 10 (6-22 (CALC)); BUN 25 mg/dL (8-23); BUN/CREATININE RATIO 22 (12-20 (CALC)); CARBON DIOXIDE 22 mmol/l (22-30); CHLORIDE 119 mmol/l (95-108); CREATININE 1.2 mg/dL (0.7-1.3); GFR FOR AFR.AMER. > 60 ML/MIN (>=60 (CALC)); GFR OTHER RACES 58 ML/MIN (>=60 (CALC)); POTASSIUM 3.2 mmol/l (3.5-5.1); SGOT/AST 28 u/l (19-48); SODIUM 148 mmol/l (137-146); TOTAL PROTEIN 6.4 g/dL (6.3-8.2)
[2022-10-06 07:09] VITALS: BP 116/54
[2022-10-06 07:12] LABS: BILIRUBIN, TOTAL 0.3 mg/dL (0.0-1.4)
[2022-10-06 10:45] VITALS: BP 116/55
[2022-10-06 14:18] VITALS: BP 135/54
[2022-10-06 19:02] VITALS: BP 143/56
[2022-10-07 04:38] VITALS: BP 149/66
[2022-10-07 06:40] VITALS: BP 150/62
[2022-10-07 06:44] VITALS: BP 150/62
[2022-10-07 10:49] VITALS: BP 137/58
[2022-10-07 13:25] LABS: EOS% 0.2 % (0-8); HEMOGLOBIN 10.7 g/dl (14.0-18.0); IMMATURE GRANULOCYTES 1.1 % (0.0-5.0); LYMPH% 7.4 % (15-41); MEAN CELL VOLUME 94.6 fL CALC (80.0-100.0); MEAN CORPUSCULAR HGB CONC 30.7 g/dL CAL (32.0-36.0); MONO% 3.8 % (2-13); NEUT# 4.59 thou/uL (1.82-7.42); NEUT% 87.5 % (42-76); RED BLOOD COUNT 3.69 mill/uL (4.70-6.10); RED CELL DISTRI WIDTH 13.9 % (11.5-15.5)
[2022-10-07 13:33] LABS: ALBUMIN 2.9 g/dL (3.2-5.0); ALKALINE PHOSPHATASE 116 u/l (38-126); ANION GAP 13 (6-22 (CALC)); BILIRUBIN, TOTAL 0.3 mg/dL (0.0-1.4); BUN 24 mg/dL (8-23); BUN/CREATININE RATIO 19 (12-20 (CALC)); CARBON DIOXIDE 20 mmol/l (22-30); CHLORIDE 122 mmol/l (95-108); CREATININE 1.3 mg/dL (0.7-1.3); GFR FOR AFR.AMER. > 60 ML/MIN (>=60 (CALC)); GFR OTHER RACES 53 ML/MIN (>=60 (CALC)); POTASSIUM 3.7 mmol/l (3.5-5.1); SGOT/AST 30 u/l (19-48); SODIUM 152 mmol/l (137-146); TOTAL PROTEIN 7.9 g/dL (6.3-8.2)
[2022-10-07 13:34] LABS: HEMATOCRIT 34.9 % (39.0-50.0)
[2022-10-07 14:30] VITALS: BP 143/68
[2022-10-07 19:39] VITALS: BP 144/68
[2022-10-08 02:35] VITALS: BP 142/63
[2022-10-08 04:08] VITALS: BP 149/65
[2022-10-08 06:12] LABS: BASO% 0.2 % (0-3); EOS% 0.5 % (0-8); HEMATOCRIT 37.3 % (39.0-50.0); HEMOGLOBIN 11.5 g/dl (14.0-18.0); IMMATURE GRANULOCYTES 0.9 % (0.0-5.0); LYMPH% 10.1 % (15-41); MEAN CELL VOLUME 92.8 fL CALC (80.0-100.0); MEAN CORPUSCULAR HGB 28.6 pG CALC (26.0-32.0); MEAN CORPUSCULAR HGB CONC 30.8 g/dL CAL (32.0-36.0); MONO% 5.3 % (2-13); NEUT# 3.61 thou/uL (1.82-7.42); RED BLOOD COUNT 4.02 mill/uL (4.70-6.10); RED CELL DISTRI WIDTH 13.9 % (11.5-15.5)
[2022-10-08 06:41] VITALS: BP 149/65
[2022-10-08 06:52] LABS: ALBUMIN 2.6 g/dL (3.2-5.0); ALKALINE PHOSPHATASE 98 u/l (38-126); ANION GAP 10 (6-22 (CALC)); BILIRUBIN, TOTAL 0.3 mg/dL (0.0-1.4); BUN 24 mg/dL (8-23); BUN/CREATININE RATIO 20 (12-20 (CALC)); CARBON DIOXIDE 22 mmol/l (22-30); CHLORIDE 126 mmol/l (95-108); CREATININE 1.2 mg/dL (0.7-1.3); GFR FOR AFR.AMER. > 60 ML/MIN (>=60 (CALC)); GFR OTHER RACES 58 ML/MIN (>=60 (CALC)); POTASSIUM 3.5 mmol/l (3.5-5.1); SGOT/AST 27 u/l (19-48); SODIUM 154 mmol/l (137-146); TOTAL PROTEIN 7.3 g/dL (6.3-8.2)
[2022-10-08 18:50] VITALS: BP 149/73
[2022-10-09] VITALS (12 sets, daily range): BP systolic 136–157; BP diastolic 65–78
[2022-10-09 06:33] LABS: BASO% 0.3 % (0-3); EOS% 0.5 % (0-8); HEMOGLOBIN 9.6 g/dl (14.0-18.0); IMMATURE GRANULOCYTES 0.8 % (0.0-5.0); LYMPH% 16.1 % (15-41); MEAN CELL VOLUME 92.4 fL CALC (80.0-100.0); MEAN CORPUSCULAR HGB 29.3 pG CALC (26.0-32.0); MEAN CORPUSCULAR HGB CONC 31.7 g/dL CAL (32.0-36.0); MONO% 6.6 % (2-13); NEUT# 2.86 thou/uL (1.82-7.42); NEUT% 75.7 % (42-76); RED BLOOD COUNT 3.28 mill/uL (4.70-6.10); RED CELL DISTRI WIDTH 14.1 % (11.5-15.5)
[2022-10-09 06:43] LABS: ALBUMIN 2.7 g/dL (3.2-5.0); ALKALINE PHOSPHATASE 90 u/l (38-126); ANION GAP 8 (6-22 (CALC)); BILIRUBIN, TOTAL 0.3 mg/dL (0.0-1.4); BUN 24 mg/dL (8-23); BUN/CREATININE RATIO 20 (12-20 (CALC)); CARBON DIOXIDE 25 mmol/l (22-30); CHLORIDE 124 mmol/l (95-108); CREATININE 1.2 mg/dL (0.7-1.3); GFR FOR AFR.AMER. > 60 ML/MIN (>=60 (CALC)); GFR OTHER RACES 58 ML/MIN (>=60 (CALC)); POTASSIUM 3.1 mmol/l (3.5-5.1); SGOT/AST 29 u/l (19-48); SODIUM 153 mmol/l (137-146); TOTAL PROTEIN 7.3 g/dL (6.3-8.2)
[2022-10-09 06:50] LABS: HEMATOCRIT 30.3 % (39.0-50.0)
[2022-10-10] VITALS (7 sets, daily range): BP systolic 111–144; BP diastolic 44–69
[2022-10-10 06:15] LABS: EOS% 0.5 % (0-8); HEMOGLOBIN 10.2 g/dl (14.0-18.0); IMMATURE GRANULOCYTES 0.8 % (0.0-5.0); LYMPH% 14.7 % (15-41); MEAN CELL VOLUME 91.2 fL CALC (80.0-100.0); MEAN CORPUSCULAR HGB 29.1 pG CALC (26.0-32.0); MEAN CORPUSCULAR HGB CONC 31.9 g/dL CAL (32.0-36.0); MONO% 4.3 % (2-13); NEUT# 2.99 thou/uL (1.82-7.42); NEUT% 79.7 % (42-76); RED BLOOD COUNT 3.51 mill/uL (4.70-6.10)
[2022-10-10 06:34] LABS: ALBUMIN 2.5 g/dL (3.2-5.0); ALKALINE PHOSPHATASE 80 u/l (38-126); ANION GAP 4 (6-22 (CALC)); BUN 18 mg/dL (8-23); BUN/CREATININE RATIO 16 (12-20 (CALC)); CARBON DIOXIDE 27 mmol/l (22-30); CHLORIDE 121 mmol/l (95-108); CREATININE 1.1 mg/dL (0.7-1.3); GFR FOR AFR.AMER. > 60 ML/MIN (>=60 (CALC)); GFR OTHER RACES > 60 ML/MIN (>=60 (CALC)); POTASSIUM 2.9 mmol/l (3.5-5.1); SGOT/AST 26 u/l (19-48); SODIUM 149 mmol/l (137-146)
[2022-10-10 06:44] LABS: BILIRUBIN, TOTAL 0.1 mg/dL (0.0-1.4)
[2022-10-11 03:44] VITALS: BP 148/77
[2022-10-11 06:08] VITALS: BP 156/81
[2022-10-11 06:13] LABS: ALBUMIN 2.5 g/dL (3.2-5.0); ALKALINE PHOSPHATASE 91 u/l (38-126); ANION GAP 7 (6-22 (CALC)); BILIRUBIN, TOTAL 0.1 mg/dL (0.0-1.4); BUN 16 mg/dL (8-23); BUN/CREATININE RATIO 15 (12-20 (CALC)); CARBON DIOXIDE 26 mmol/l (22-30); CHLORIDE 116 mmol/l (95-108); GFR FOR AFR.AMER. > 60 ML/MIN (>=60 (CALC)); GFR OTHER RACES > 60 ML/MIN (>=60 (CALC)); POTASSIUM 2.8 mmol/l (3.5-5.1); SGOT/AST 31 u/l (19-48); SODIUM 146 mmol/l (137-146); TOTAL PROTEIN 7.1 g/dL (6.3-8.2)
[2022-10-11 06:18] LABS: EOS% 0.6 % (0-8); HEMATOCRIT 31.1 % (39.0-50.0); HEMOGLOBIN 10.2 g/dl (14.0-18.0); IMMATURE GRANULOCYTES 0.8 % (0.0-5.0); LYMPH% 14.4 % (15-41); MEAN CELL VOLUME 88.9 fL CALC (80.0-100.0); MEAN CORPUSCULAR HGB 29.1 pG CALC (26.0-32.0); MEAN CORPUSCULAR HGB CONC 32.8 g/dL CAL (32.0-36.0); MONO% 3.5 % (2-13); NEUT# 4.14 thou/uL (1.82-7.42); NEUT% 80.7 % (42-76); RED BLOOD COUNT 3.5 mill/uL (4.70-6.10); RED CELL DISTRI WIDTH 13.9 % (11.5-15.5)
[2022-10-11 14:20] VITALS: BP 127/64
[2022-10-11 19:04] VITALS: BP 134/69
[2022-10-12] VITALS (8 sets, daily range): BP systolic 143–165; BP diastolic 69–79
[2022-10-12 05:51] LABS: EOS% 0.7 % (0-8); HEMATOCRIT 30.6 % (39.0-50.0); IMMATURE GRANULOCYTES 0.7 % (0.0-5.0); LYMPH% 13.5 % (15-41); MEAN CELL VOLUME 88.4 fL CALC (80.0-100.0); MEAN CORPUSCULAR HGB 28.9 pG CALC (26.0-32.0); MEAN CORPUSCULAR HGB CONC 32.7 g/dL CAL (32.0-36.0); MONO% 3.8 % (2-13); NEUT# 4.5 thou/uL (1.82-7.42); NEUT% 81.3 % (42-76); RED BLOOD COUNT 3.46 mill/uL (4.70-6.10); RED CELL DISTRI WIDTH 13.7 % (11.5-15.5)
[2022-10-12 05:59] LABS: ALBUMIN 2.2 g/dL (3.2-5.0); ALKALINE PHOSPHATASE 85 u/l (38-126); BUN 17 mg/dL (8-23); BUN/CREATININE RATIO 18 (12-20 (CALC)); CARBON DIOXIDE 28 mmol/l (22-30); CHLORIDE 113 mmol/l (95-108); CREATININE 0.9 mg/dL (0.7-1.3); GFR FOR AFR.AMER. > 60 ML/MIN (>=60 (CALC)); GFR OTHER RACES > 60 ML/MIN (>=60 (CALC)); SGOT/AST 35 u/l (19-48); SODIUM 141 mmol/l (137-146); TOTAL PROTEIN 6.6 g/dL (6.3-8.2)
[2022-10-12 06:00] LABS: ANION GAP 4 (6-22 (CALC)); POTASSIUM 3.5 mmol/l (3.5-5.1)
[2022-10-13 04:00] VITALS: BP 139/60
[2022-10-13 04:01] VITALS: BP 139/60
[2022-10-13 05:24] LABS: BASO% 0.2 % (0-3); EOS% 0.8 % (0-8); HEMATOCRIT 30.8 % (39.0-50.0); HEMOGLOBIN 9.8 g/dl (14.0-18.0); LYMPH% 17.3 % (15-41); MEAN CELL VOLUME 90.3 fL CALC (80.0-100.0); MEAN CORPUSCULAR HGB 28.7 pG CALC (26.0-32.0); MEAN CORPUSCULAR HGB CONC 31.8 g/dL CAL (32.0-36.0); MONO% 4.8 % (2-13); NEUT# 3.65 thou/uL (1.82-7.42); NEUT% 75.9 % (42-76); RED BLOOD COUNT 3.41 mill/uL (4.70-6.10); RED CELL DISTRI WIDTH 14.1 % (11.5-15.5)
[2022-10-13 05:44] LABS: ALBUMIN 2.2 g/dL (3.2-5.0); ALKALINE PHOSPHATASE 73 u/l (38-126); BUN 16 mg/dL (8-23); BUN/CREATININE RATIO 16 (12-20 (CALC)); CARBON DIOXIDE 30 mmol/l (22-30); CHLORIDE 109 mmol/l (95-108); GFR FOR AFR.AMER. > 60 ML/MIN (>=60 (CALC)); GFR OTHER RACES > 60 ML/MIN (>=60 (CALC)); SGOT/AST 43 u/l (19-48); SODIUM 142 mmol/l (137-146); TOTAL PROTEIN 6.3 g/dL (6.3-8.2)
[2022-10-13 05:46] LABS: ANION GAP 7 (6-22 (CALC)); POTASSIUM 3.5 mmol/l (3.5-5.1)
[2022-10-13 06:52] VITALS: BP 139/60
[2022-10-13 14:20] VITALS: BP 140/63
[2022-10-13 19:00] VITALS: BP 180/78
[2022-10-13 19:17] VITALS: BP 180/78
[2022-10-14] VITALS: BP 172/76
[2022-10-14 00:12] VITALS: BP 172/76
[2022-10-14 03:56] VITALS: BP 172/73
[2022-10-14 04:57] LABS: BASO% 0.2 % (0-3); HEMATOCRIT 31.8 % (39.0-50.0); HEMOGLOBIN 10.1 g/dl (14.0-18.0); IMMATURE GRANULOCYTES 0.6 % (0.0-5.0); LYMPH% 17.4 % (15-41); MEAN CELL VOLUME 89.3 fL CALC (80.0-100.0); MEAN CORPUSCULAR HGB 28.4 pG CALC (26.0-32.0); MEAN CORPUSCULAR HGB CONC 31.8 g/dL CAL (32.0-36.0); MONO% 5.6 % (2-13); NEUT# 3.59 thou/uL (1.82-7.42); NEUT% 75.2 % (42-76); RED BLOOD COUNT 3.56 mill/uL (4.70-6.10)
[2022-10-14 05:12] LABS: ANION GAP 4 (6-22 (CALC)); BUN 17 mg/dL (8-23); BUN/CREATININE RATIO 18 (12-20 (CALC)); CARBON DIOXIDE 34 mmol/l (22-30); CHLORIDE 107 mmol/l (95-108); GFR FOR AFR.AMER. > 60 ML/MIN (>=60 (CALC)); GFR OTHER RACES > 60 ML/MIN (>=60 (CALC)); POTASSIUM 3.4 mmol/l (3.5-5.1); SODIUM 141 mmol/l (137-146)
[2022-10-14 07:14] VITALS: BP 136/52
[2022-10-14 15:46] VITALS: BP 131/58
[2022-10-14 19:00] VITALS: BP 105/57
[2022-10-15 00:12] VITALS: BP 141/67
[2022-10-15 06:11] LABS: BASO% 0.2 % (0-3); EOS% 1.1 % (0-8); HEMATOCRIT 33.4 % (39.0-50.0); HEMOGLOBIN 10.6 g/dl (14.0-18.0); IMMATURE GRANULOCYTES 0.7 % (0.0-5.0); LYMPH% 17.4 % (15-41); MEAN CELL VOLUME 89.8 fL CALC (80.0-100.0); MEAN CORPUSCULAR HGB 28.5 pG CALC (26.0-32.0); MEAN CORPUSCULAR HGB CONC 31.7 g/dL CAL (32.0-36.0); MONO% 6.1 % (2-13); NEUT# 3.42 thou/uL (1.82-7.42); NEUT% 74.5 % (42-76); RED BLOOD COUNT 3.72 mill/uL (4.70-6.10); RED CELL DISTRI WIDTH 14.1 % (11.5-15.5)
[2022-10-15 06:24] LABS: ALBUMIN 2.6 g/dL (3.2-5.0); ALKALINE PHOSPHATASE 84 u/l (38-126); ANION GAP 6 (6-22 (CALC)); BUN 18 mg/dL (8-23); BUN/CREATININE RATIO 19 (12-20 (CALC)); CARBON DIOXIDE 34 mmol/l (22-30); CHLORIDE 104 mmol/l (95-108); GFR FOR AFR.AMER. > 60 ML/MIN (>=60 (CALC)); GFR OTHER RACES > 60 ML/MIN (>=60 (CALC)); POTASSIUM 3.6 mmol/l (3.5-5.1); SODIUM 140 mmol/l (137-146); TOTAL PROTEIN 7.4 g/dL (6.3-8.2)
[2022-10-15 06:25] LABS: BILIRUBIN, TOTAL 0.3 mg/dL (0.0-1.4); SGOT/AST 43 u/l (19-48)
[2022-10-15 09:21] VITALS: BP 142/69
[2022-10-15 14:35] VITALS: BP 117/56
[2022-10-15 19:07] VITALS: BP 115/64
[2022-10-15 23:46] VITALS: BP 127/66
[2022-10-16 04:46] VITALS: BP 139/66
[2022-10-16 06:11] LABS: BASO% 0.2 % (0-3); EOS% 1.4 % (0-8); HEMATOCRIT 33.6 % (39.0-50.0); HEMOGLOBIN 10.8 g/dl (14.0-18.0); IMMATURE GRANULOCYTES 0.6 % (0.0-5.0); LYMPH% 16.1 % (15-41); MEAN CELL VOLUME 89.8 fL CALC (80.0-100.0); MEAN CORPUSCULAR HGB 28.9 pG CALC (26.0-32.0); MEAN CORPUSCULAR HGB CONC 32.1 g/dL CAL (32.0-36.0); MONO% 6.8 % (2-13); NEUT# 3.63 thou/uL (1.82-7.42); NEUT% 74.9 % (42-76); RED BLOOD COUNT 3.74 mill/uL (4.70-6.10)
[2022-10-16 06:21] LABS: ALKALINE PHOSPHATASE 93 u/l (38-126); ANION GAP 7 (6-22 (CALC)); BILIRUBIN, TOTAL 0.4 mg/dL (0.0-1.4); BUN 19 mg/dL (8-23); BUN/CREATININE RATIO 20 (12-20 (CALC)); CARBON DIOXIDE 31 mmol/l (22-30); CHLORIDE 104 mmol/l (95-108); CREATININE 0.9 mg/dL (0.7-1.3); GFR FOR AFR.AMER. > 60 ML/MIN (>=60 (CALC)); GFR OTHER RACES > 60 ML/MIN (>=60 (CALC)); SGOT/AST 46 u/l (19-48); SODIUM 138 mmol/l (137-146); TOTAL PROTEIN 8.2 g/dL (6.3-8.2)
[2022-10-16 07:15] VITALS: BP 131/63
[2022-10-16 14:00] VITALS: BP 134/63
[2022-10-16 19:02] VITALS: BP 138/70
[2022-10-17 03:52] VITALS: BP 138/64
[2022-10-17 06:06] VITALS: BP 140/68
[2022-10-17 07:54] VITALS: BP 140/68
[2022-10-17 08:59] VITALS: BP 140/68
== END 2022-10-17 15:00 | disposition hospice, inpatient (51) | DRG 178 ==
LOC: ED 13:32 → ED-I 14:01 → ED 14:01 → ED-I 15:09 → ED 15:46 → MS2 15:47
PROVIDERS: Family Medicine; Internal Medicine; Nurse Practitioner Family; ADMIT Internal Medicine; ATTEND Internal Medicine
PROC: 0DH63UZ Insertion of Feeding Device into Stomach, Percutaneous Approach (ICD-10-PCS; principal; 2022-10-09)
DX: J69.0 Pneumonitis due to inhalation of food and vomit (principal); A04.72 Enterocolitis due to Clostridium difficile, not specified as recurrent; N17.9 Acute kidney failure, unspecified; I12.9 Hypertensive chronic kidney disease with stage 1 through stage 4 chronic kidney disease, or unspecified chronic kidney disease; N18.9 Chronic kidney disease, unspecified; K44.9 Diaphragmatic hernia without obstruction or gangrene; R13.10 Dysphagia, unspecified; R62.7 Adult failure to thrive; R09.02 Hypoxemia; T50.916A Underdosing of multiple unspecified drugs, medicaments and biological substances, initial encounter; E03.9 Hypothyroidism, unspecified; G20 Parkinson's disease; E78.5 Hyperlipidemia, unspecified; Z51.5 Encounter for palliative care; Z91.128 Patient's intentional underdosing of medication regimen for other reason; Z91.119 Patient's noncompliance with dietary regimen due to unspecified reason; Z85.21 Personal history of malignant neoplasm of larynx; Z95.0 Presence of cardiac pacemaker; Z92.3 Personal history of irradiation; Z20.822 Contact with and (suspected) exposure to COVID-19
CPT/HCPCS: G0378; S0164